=== PATIENT | female | born 1980 | race Hispanic/Latino ===

== ENCOUNTER 2017-07-23 18:49 | Emergency (ER) | payer OTHER ==
[2017-07-23] MEDS ORDERED: SODIUM CHLORIDE 0.9% 1000ML 1,000 ML IV ONE (19:22)
[2017-07-23] MEDS ORDERED: ONDANSETRON ODT 4 MG TAB ONE (19:24)
[2017-07-23] MEDS ORDERED: IBUPROFEN 800 MG TAB ONE (20:34)
== END 2017-07-23 20:46 | disposition home or self-care (01) ==
LOC: EDH 18:49
DX: K52.9 Noninfective gastroenteritis and colitis, unspecified (principal); R11.2 Nausea with vomiting, unspecified; F10.10 Alcohol abuse, uncomplicated; M06.9 Rheumatoid arthritis, unspecified; Z98.890 Other specified postprocedural states
CPT/HCPCS: 96360; 99284; J7030

== ENCOUNTER 2017-12-26 11:45 | Inpatient (IN) | payer OTHER ==
[~2017-12-26] VITALS: Ht 154.9 cm; Wt 57.6 kg
[2018-01-03 16:13] VITALS: BP 113/65
[2018-01-03 16:22] LABS: BASOPHILS % (AUTO) 0.5 % (0.0-5.0); EOSINOPHILS % (AUTO) 0.6 % (0.0-8.0); HEMATOCRIT 41.4 % (36-48); LYMPHOCYTES % (AUTO) 25.5 % (21.0-51.0); MEAN CORPUSCULAR HEMOGLOBIN 28.8 pg (27.0-33.0); MEAN CORPUSCULAR HGB CONC 32.9 g/dL (32.0-36.0); MEAN CORPUSCULAR VOLUME 87.6 fL (79-99); MONOCYTES % (AUTO) 5.1 % (3.0-13.0); NEUTROPHILS % (AUTO) 68.3 % (40.0-77.0); PLATELET COUNT (AUTO) 232 K/uL (130-400); RED BLOOD CELL COUNT(AUTO) 4.73 MIL/uL (4.00-5.50); RED CELL DISTRIBUTION WIDTH 13.9 % (11.0-15.5); WHITE BLOOD COUNT (AUTO) 7.4 K/uL (4.8-10.8)
[2018-01-03] MEDS ORDERED: ADAL40KI SQ (16:25)
[2018-01-03 16:39] LABS: INR 1.06 (0.85-1.15); PARTIAL THROMBOPLASTIN TIME 28.7 SEC (26.3-35.5); PROTHROMBIN TIME 11.1 SEC (9.6-11.6)
[2018-01-03 16:42] LABS: POTASSIUM 4.1 mmol/L (3.5-5.1)
[2018-01-04] VITALS (22 sets, daily range): BP systolic 98–125; BP diastolic 53–79
[2018-01-04] MEDS ORDERED: PROPOFOL 10 MG/ML 20ML VIAL IV ONE ×2 (07:59→11:07)
[2018-01-04] MEDS ORDERED: ROCURONIUM 10MG/1ML SYR 10 MG/ML ML ONE (08:00)
[2018-01-04] MEDS ORDERED: LACTATED RINGERS 1000ML 1,000 ML IV SCH (08:00)
[2018-01-04] MEDS ORDERED: MIDAZOLAM HCL 1 MG/ML 2ML VIAL ONE (08:00)
[2018-01-04] MEDS ORDERED: FENTANYL CITRATE PF 50 MCG/1 ML 5ML AMP IV ONE ×2 (08:01→09:27)
[2018-01-04] MEDS ORDERED: MAGNESIUM SULFATE 1 GM/2 ML VIAL ONE (08:04)
[2018-01-04] MEDS ORDERED: KETAMINE 50MG/ML SYRINGE 50 MG/ML DISP.SYRIN IV ONE (08:05)
[2018-01-04] MEDS ORDERED: CALDOLOR 800MG+NS 250ML 250 ML IV ONE (08:11)
[2018-01-04] MEDS: CEFAZOLIN SODIUM 1 GM VIAL IVP ONE ×2 (08:23→09:00)
[2018-01-04] MEDS ORDERED: ONDANSETRON HCL 4 MG/2 ML VIAL ONE (10:01)
[2018-01-04] MEDS ORDERED: DEXAMETHASONE SOD PHOSPHATE 10MG/ML 1ML VIAL ONE (10:01)
[2018-01-04] MEDS ORDERED: GLYCOPYRROLATE 1 MG/5 ML SYRINGE ONE (10:02)
[2018-01-04] MEDS ORDERED: NEOSTIGMINE 5MG/5ML SYR IV ONE (10:02)
[2018-01-04] MEDS ORDERED: IBUPROFEN 800 MG TAB PO PRN (11:15)
[2018-01-04] MEDS ORDERED: BISACODYL 10 MG SUPP.RECT RC PRN (11:15)
[2018-01-04] MEDS: IBUPROFEN 800 MG TAB PO SCH ×4 (11:15→20:42)
[2018-01-04] MEDS ORDERED: DOCUSATE SODIUM 100 MG CAP PO PRN (11:15)
[2018-01-04] MEDS ORDERED: IBUPROFEN 600 MG TABLET PO PRN (11:15)
[2018-01-04] MEDS ORDERED: ACETAMINOPHEN-CODEINE 300/30MG TAB PO PRN (11:15)
[2018-01-04] MEDS ORDERED: ONDANSETRON HCL 4 MG/2 ML VIAL IVP PRN (11:15)
[2018-01-04] MEDS ORDERED: SIMETHICONE 80 MG TAB.CHEW PO PRN (11:15)
[2018-01-04] MEDS: PROMETHAZINE HCL 25 MG/ML 1ML AMPULE IM PRN ×2 (12:42→16:10)
[2018-01-04] MEDS: MEPERIDINE-PF 75 MG/ML SYG IM PRN ×2 (12:43→16:11)
[2018-01-04 13:27] LABS: HEMATOCRIT 34.7 % (36-48)
[2018-01-04] MEDS: CALDOLOR 800MG+NS 250ML 250 ML IVPB SCH (19:35)
[2018-01-04] MEDS: DEXTROSE 5%-LACTATED RINGERS 1,000 ML IV PRN (19:36)
[2018-01-05] VITALS (7 sets, daily range): BP systolic 90–104; BP diastolic 53–66
[2018-01-05] MEDS: MEPERIDINE-PF 75 MG/ML SYG IM PRN (00:14)
[2018-01-05] MEDS: PROMETHAZINE HCL 25 MG/ML 1ML AMPULE IM PRN (00:15)
[2018-01-05] MEDS: CALDOLOR 800MG+NS 250ML 250 ML IVPB SCH (03:15)
[2018-01-05 06:24] LABS: HEMATOCRIT 30.9 % (36-48); MEAN CORPUSCULAR HEMOGLOBIN 29.1 pg (27.0-33.0); MEAN CORPUSCULAR HGB CONC 33.1 g/dL (32.0-36.0); MEAN CORPUSCULAR VOLUME 87.8 fL (79-99); PLATELET COUNT (AUTO) 180 K/uL (130-400); RED BLOOD CELL COUNT(AUTO) 3.51 MIL/uL (4.00-5.50); RED CELL DISTRIBUTION WIDTH 13.7 % (11.0-15.5); WHITE BLOOD COUNT (AUTO) 13.3 K/uL (4.8-10.8)
[2018-01-05] MEDS: DEXTROSE 5%-LACTATED RINGERS 1,000 ML IV PRN (06:25)
[2018-01-05] MEDS: DOCUSATE SODIUM 100 MG CAP PO PRN ×2 (09:23→21:31)
[2018-01-05] MEDS: SIMETHICONE 80 MG TAB.CHEW PO PRN ×4 (09:23→21:31)
[2018-01-05] MEDS: ACETAMINOPHEN-CODEINE 300/30MG TAB PO PRN ×3 (09:25→23:16)
[2018-01-05] MEDS: IBUPROFEN 800 MG TAB PO SCH ×2 (11:56→19:07)
[2018-01-05] MEDS: BISACODYL 10 MG SUPP.RECT RC PRN (13:33)
[2018-01-06] MEDS: IBUPROFEN 800 MG TAB PO SCH ×2 (03:34→11:06)
[2018-01-06 04:34] VITALS: BP 92/53
[2018-01-06 07:54] VITALS: BP 97/71
[2018-01-06] MEDS: SIMETHICONE 80 MG TAB.CHEW PO PRN (08:51)
[2018-01-06] MEDS: DOCUSATE SODIUM 100 MG CAP PO PRN (08:51)
[2018-01-06] MEDS: BISACODYL 10 MG SUPP.RECT RC PRN (08:55)
[2018-01-06 11:36] VITALS: BP 105/63
[2018-01-06] MEDS: ACETAMINOPHEN-CODEINE 300/30MG TAB PO PRN (13:14)
[2018-01-18] MEDS ORDERED: ADALIMUMAB 40 MG SQ SCH (09:00)
== END 2018-01-06 15:35 | disposition home or self-care (01) | DRG 743 ==
LOC: EDSTATUS 01-01 11:45 → DAHIP 01-04 07:38 → WSH 01-04 12:25
PROVIDERS: ADMIT Obstetrics & Gynecology; ATTEND Obstetrics & Gynecology
PROC: 0UB00ZZ Excision of Right Ovary, Open Approach (ICD-10-PCS; 2018-01-04)
PROC: 0UT90ZZ Resection of Uterus, Open Approach (ICD-10-PCS; principal; 2018-01-04 08:50)
PROC: 0UB70ZZ Excision of Bilateral Fallopian Tubes, Open Approach (ICD-10-PCS; 2018-01-04 08:50)
PROC: 0DNW0ZZ Release Peritoneum, Open Approach (ICD-10-PCS; 2018-01-04 08:50)
DX: D25.9 Leiomyoma of uterus, unspecified (principal); N94.6 Dysmenorrhea, unspecified; N80.0 Endometriosis of uterus; N92.0 Excessive and frequent menstruation with regular cycle; N87.9 Dysplasia of cervix uteri, unspecified; N83.201 Unspecified ovarian cyst, right side; N73.6 Female pelvic peritoneal adhesions (postinfective); Z98.891 History of uterine scar from previous surgery
CPT/HCPCS: 36415; 80051; 84702; 85014; 85018; 85025; 85027; 85610; 85730; 86850; 86900; 86901; 88305; 88307; A4344; J0690; J1100; J1741; J2175; J2250; J2405; J2550; J2704; J2710; J3010; J3475; J3490; J7120

== ENCOUNTER 2018-02-02 09:19 | Emergency (ER) | payer OTHER ==
[~2018-02-02 09:19] MED LIST: ADAL40KI SQ
[2018-02-02] MEDS ORDERED: BUPIVACAINE/PF 0.5% 30ML VIAL ONE (10:09)
[2018-02-02] MEDS ORDERED: LIDOCAINE HCL 1% 20 ML VIAL ONE (10:10)
== END 2018-02-02 10:59 | disposition home or self-care (01) ==
LOC: EDH 09:19
DX: L60.0 Ingrowing nail (principal); B35.1 Tinea unguium; M06.9 Rheumatoid arthritis, unspecified; Z86.718 Personal history of other venous thrombosis and embolism; Z90.710 Acquired absence of both cervix and uterus
CPT/HCPCS: 11730; 99283; J3490

== ENCOUNTER 2018-05-31 14:14 | Emergency (ER) | payer OTHER ==
[2018-05-31] MEDS ORDERED: METOCLOPRAMIDE 10 MG/2 ML VIAL ONE (15:26)
[2018-05-31] MEDS ORDERED: DiphenhydrAMINE HCL 50 MG/ML VIAL ONE (15:27)
[2018-05-31] MEDS ORDERED: ONDANSETRON HCL 4 MG/2 ML VIAL ONE (15:27)
[2018-05-31 15:29] LABS: BASOPHILS % (AUTO) 0.4 % (0.0-5.0); EOSINOPHILS % (AUTO) 0.3 % (0.0-8.0); HEMATOCRIT 40.1 % (36-48); LYMPHOCYTES % (AUTO) 17.1 % (21.0-51.0); MEAN CORPUSCULAR HEMOGLOBIN 26.9 pg (27.0-33.0); MEAN CORPUSCULAR HGB CONC 32.6 g/dL (32.0-36.0); MEAN CORPUSCULAR VOLUME 82.4 fL (79-99); MONOCYTES % (AUTO) 6.6 % (3.0-13.0); NEUTROPHILS % (AUTO) 75.6 % (40.0-77.0); PLATELET COUNT (AUTO) 236 K/uL (130-400); RED BLOOD CELL COUNT(AUTO) 4.87 MIL/uL (4.00-5.50); RED CELL DISTRIBUTION WIDTH 16.7 % (11.0-15.5); WHITE BLOOD COUNT (AUTO) 7.6 K/uL (4.8-10.8)
[2018-05-31 15:31] LABS: APPEARANCE,URINE Clear (CLEAR); BILIRUBIN,URINE Negative (NEGATIVE); COLOR,URINE Yellow (YELLOW); GLUCOSE, URINE (UA) Negative (NEGATIVE); KETONES,URINE 40 mg/dL (NEGATIVE); LEUKOCYTE ESTERASE ,URINE Negative (NEGATIVE); NITRATE,URINE Negative (NEGATIVE); OCCULT BLOOD,URINE Negative (NEGATIVE); PH,URINE 7.5 (5.0-8.0); PROTEIN,URINE Negative (NEGATIVE)
[2018-05-31 15:33] LABS: HCG,QUAL RESULT NEGATIVE (NEGATIVE)
[2018-05-31 15:46] LABS: RAPID GROUP A STREP NEGATIVE (NEGATIVE)
[2018-05-31 15:48] LABS: CREATININE 0.8 mg/dL (0.5-1.5); POTASSIUM 3.8 mmol/L (3.5-5.1)
[2018-05-31 15:52] LABS: ALBUMIN 3.9 g/dL (3.5-5.0); BILIRUBIN,TOTAL 0.4 mg/dL (0.2-1.0); CRP QUANTITATIVE 7.6 mg/L (0.00-9.0); TOTAL PROTEIN, SERUM 8.2 g/dL (6.0-8.3)
[2018-05-31 16:56] LABS: ERYTHROCYTE SEDIMENTATION RATE 30 MM/HR (0-20)
== END 2018-05-31 16:34 | disposition home or self-care (01) ==
LOC: EDH 14:14
DX: J10.1 Influenza due to other identified influenza virus with other respiratory manifestations (principal); M06.9 Rheumatoid arthritis, unspecified; Z86.718 Personal history of other venous thrombosis and embolism; Z90.710 Acquired absence of both cervix and uterus
CPT/HCPCS: 36415; 80053; 81003; 81025; 85025; 85651; 86140; 87804 ×2; 87880; 96374; 96375; 99283; J1200; J2405; J2765

== ENCOUNTER 2018-06-21 16:48 | Emergency (ER) | payer OTHER ==
[2018-06-21] MEDS ORDERED: KETOROLAC TROMETHAMINE 15MG/ML ONE ×2 (17:26→18:42)
[2018-06-21 17:39] LABS: BASOPHILS % (AUTO) 0.3 % (0.0-5.0); EOSINOPHILS % (AUTO) 1.2 % (0.0-8.0); HEMATOCRIT 39.3 % (36-48); LYMPHOCYTES % (AUTO) 25.3 % (21.0-51.0); MEAN CORPUSCULAR HEMOGLOBIN 27.5 pg (27.0-33.0); MEAN CORPUSCULAR VOLUME 83.3 fL (79-99); NEUTROPHILS % (AUTO) 66.2 % (40.0-77.0); PLATELET COUNT (AUTO) 281 K/uL (130-400); RED BLOOD CELL COUNT(AUTO) 4.71 MIL/uL (4.00-5.50); RED CELL DISTRIBUTION WIDTH 16.4 % (11.0-15.5); WHITE BLOOD COUNT (AUTO) 8.8 K/uL (4.8-10.8)
[2018-06-21 17:46] LABS: CREATININE 0.8 mg/dL (0.5-1.5); POTASSIUM 4.1 mmol/L (3.5-5.1)
[2018-06-21 17:52] LABS: ALBUMIN 3.9 g/dL (3.5-5.0); BILIRUBIN,TOTAL 0.5 mg/dL (0.2-1.0); TOTAL PROTEIN, SERUM 8.1 g/dL (6.0-8.3)
[2018-06-21 18:16] LABS: APPEARANCE,URINE Clear (CLEAR); BILIRUBIN,URINE Negative (NEGATIVE); COLOR,URINE Yellow (YELLOW); GLUCOSE, URINE (UA) Negative (NEGATIVE); KETONES,URINE Negative (NEGATIVE); LEUKOCYTE ESTERASE ,URINE Trace (NEGATIVE); NITRATE,URINE Negative (NEGATIVE); OCCULT BLOOD,URINE Negative (NEGATIVE); PROTEIN,URINE Negative (NEGATIVE); UROBILINOGEN,URINE 0.2 mg/dL (0.2-1.0)
[2018-06-21 18:25] LABS: BACTERIA,URINE None Seen /HPF (None Seen); RBC,URINE 0-1 /HPF (0-1); WBC,URINE 0-1 /HPF (0-1)
[2018-06-21] MEDS ORDERED: HYOSCYAMINE SULFATE 0.125 MG TAB.SUBL SL ONE (18:43)
== END 2018-06-21 19:29 | disposition home or self-care (01) ==
LOC: EDH 16:48
DX: N20.0 Calculus of kidney (principal); M06.9 Rheumatoid arthritis, unspecified; Z90.710 Acquired absence of both cervix and uterus; Z86.718 Personal history of other venous thrombosis and embolism; Z87.891 Personal history of nicotine dependence
CPT/HCPCS: 36415; 74176; 80053; 81001; 83690; 85025; 96374; 96376; 99284; J1885 ×2